=== PATIENT | male | born 1970 | race African-American/Black ===

== ENCOUNTER 2019-01-21 07:48 | Emergency (ER) | payer MEDICAID ==
[~2019-01-21] VITALS: Ht 167.6 cm; Wt 68.0 kg
[~2019-01-21 07:48] MED LIST: AMLO2.5T45 PO; ASPI-1393 PO; HYDR100T26 PO; LISI10TA5 PO
[2019-01-21] MEDS ORDERED: SODIUM CHLORIDE 0.9% 1,000 ML IV ONE ×2 (09:03→14:15)
[2019-01-21] MEDS ORDERED: DIPHENHYDRAMINE 50MG/ML VIAL IV ONE (09:15)
[2019-01-21] MEDS ORDERED: METOCLOPRAMIDE HCL 10MG/2ML VIAL IV ONE (09:15)
[2019-01-21 09:23] LABS: BASOPHILS % 0.4 % (0.0-2.0); EOSINOPHILS % 0.1 % (0.0-5.0); HEMATOCRIT. 32.8 % (42.0-52.0); HEMOGLOBIN. 11.1 g/dL (14.0-18.0); LYMPHOCYTES % 18.2 % (20.0-50.0); MEAN CORPUSCULAR HEMOGLOBIN 32.1 pg (28.0-32.0); MEAN CORPUSCULAR VOLUME 94.5 fL (80.0-94.0); MEAN PLATELET VOLUME 6.5 fl (7.4-10.4); MONOCYTES % 6.5 % (2.0-8.0); NEUTROPHILS % 74.8 % (40.0-76.0); PLATELET 268 x1000/uL (130-400); RED BLOOD CELL COUNT 3.47 mill/uL (4.7-6.1); RED CELL DISTRIBUTION WIDTH 12.1 % (11.6-14.6)
[2019-01-21 09:26] LABS: CHLORIDE 100 mEq/L (98-107)
[2019-01-21 10:20] LABS: CLARITY URINE CLEAR (CLEAR); COLOR URINE YELLOW (YELLOW); KETONES URINE NEGATIVE (NEGATIVE); LEUKOCYTE ESTERASE URINE NEGATIVE (NEGATIVE); NITRITE URINE NEGATIVE (NEGATIVE); OCCULT BLOOD URINE NEGATIVE (NEGATIVE); PH URINE 7.5 (4.5-8.0); PROTEIN URINE 1+ (NEGATIVE); SPECIFIC GRAVITY URINE 1.014 (1.005-1.030); UROBILINOGEN URINE 0.2 E.U./dL (0.2-1.0)
[2019-01-21] MEDS ORDERED: MORPHINE SULFATE 4 MG/ML CPJ (NOT FOR IM USE) IV ONE (10:30)
[2019-01-21] MEDS ORDERED: IOHEXOL-350 100 ML BOTTLE ONE (11:21)
[2019-01-21 15:01] LABS: GLUCOSE CSF 68 mg/dL (41-75)
[2019-01-21] MEDS ORDERED: HYDROCODONE/ACETAMINOPHEN 5/325MG TABLET PO ONE (17:45)
[2019-01-21] MEDS ORDERED: CHLORPROMAZINE HCL 25 MG TABLET PO ONE (17:45)
[2019-01-21 18:44] VITALS: BP 141/70
== END 2019-01-21 19:19 | disposition home or self-care (01) ==
LOC: ER 07:48
DX: I67.1 Cerebral aneurysm, nonruptured (principal); R51 Headache; I10 Essential (primary) hypertension; M54.2 Cervicalgia; R11.2 Nausea with vomiting, unspecified; Z79.899 Other long term (current) drug therapy
CPT/HCPCS: 36415; 62270; 70450; 70496; 70498; 80053; 81003; 82945; 83605; 84157; 85025; 87070; 87205; 89050; 96361; 96374; 96375; 99291; J1200; J2270; J2765; J7030; Q0161; Q9967; Z7610